=== PATIENT | male | born 1975 | race Caucasian/White ===

== ENCOUNTER → 2020-05-02 | Outpatient (CLI) | payer SELFPAY | LOC: LAB 08:04 | DX: U07.1 COVID-19 (principal) ==

== ENCOUNTER → 2024-07-01 | Outpatient (CLI) | payer BC | LOC: LAB 11:02 | PROVIDERS: Family Medicine | DX: Z12.11 Encounter for screening for malignant neoplasm of colon (principal); Z13.1 Encounter for screening for diabetes mellitus; Z13.220 Encounter for screening for lipoid disorders; I10 Essential (primary) hypertension ==